=== PATIENT | female | born 1955 | race Caucasian/White ===

== ENCOUNTER 2017-07-29 18:00 | Emergency (ER) | payer MEDICAID ==
--- NOTE | 2017-07-29 18:14 | ED Physician Chart ---
ED Chief Complaint/HPI - Patient Information Allergies:: Allergies Allergy/AdvReac Type Severity Reaction Status Date / Time No Known Allergies Allergy Verified 07/29/17 18:20 Vitals:: Vital Signs - 8 hr 07/29/17 18:20 Temp 97.1 F HR 79 RR 18 BP 143/64 O2 Sat % 97 <Carly Moscoso - Last Filed: 07/29/17 22:49> - Patient Information Date Seen:: 07/29/17 Time Seen:: 18:13 Chief Complaint:: Right knee pain History of Present Illness:: 62 yo female had right knee pain with difficulty walking for one week. The pain became worse today. Patient had a fall with a trauma to the right knee 10 years ago. <Lauren Valladares - Last Filed: 07/31/17 21:25> ED Review of Systems - Review of Systems General/Constitutional: No fever Skin: No bruising Head: No headache ENT: No nasal drainage Neck: No neck pain Cardio Vascular: No chest pain Pulmonary: No SOB GI: No nausea, No vomiting Musculoskeletal: Bone or joint pain Neurological: No focal symptoms <Lauren Valladares Last Filed: 07/31/17 21:25> ED Past Medical History - Past Medical History Past Medical History: No significant medical hx Social History: Non Smoker, No Alcohol, No Drug Use Surgical History: Hysterectomy <Lauren Valladares Last Filed: 07/31/17 21:25> Family Medical History - Family Member Mother History Unknown: Yes <Carly Moscoso - Last Filed: 07/29/17 22:49> ED Physical Exam - Physical Examination General/Constitutional: Awake Head: Atraumatic Eyes: PERRL Skin: No ecchymosis ENMT: Nasal exam nl Neck: No nuchal rigidity Respiratory: No Wheeze/Rhonchi/Rales Cardio Vascular: RRR, No murmur, gallop, rubs, NL S1 S2 GI: No tenderness/rebounding/guarding Other Extremities comments:: Posterior right knee tenderness with painful ROM Neuro/Psych: No focal deficits <Lauren Valladares Last Filed: 07/31/17 21:25> ED Labs/Radiology/EKG Results - Lab Results Results: Laboratory Tests 07/29/17 07/29/17 07/29/17 18:45 18:45 18:45 WBC 7.9 RBC 4.43 Hgb 14.4 Hct 42.5 MCV 96.1 MCH 32.5 H MCHC Differential 33.8 RDW 12.2 Plt Count 238 MPV 8.6 Neutrophils % 48.7 Lymphocytes % 33.7 Monocytes % 13.5 H Eosinophils % 3.4 Basophils % 0.7 D-Dimer 1940 H Sodium 135 L Potassium 3.8 Chloride 102 Carbon Dioxide 27.6 Anion Gap 9.2 BUN 12 Creatinine 0.7 Est GFR ( Amer) > 60.0 Est GFR (Non-Af Amer) > 60.0 BUN/Creatinine Ratio 17.1 Glucose 117 H Uric Acid 4.8 Calcium 9.5 Total Bilirubin 0.3 AST 27 ALT 26 Alkaline Phosphatase 92 Total Protein 6.9 Albumin 4.2 Globulin 2.7 Albumin/Globulin Ratio 1.6 <Carly Moscoso - Last Filed: 07/29/17 22:49> - Radiology Results Results: Right knee X ray: Mild degenerative changes. No acute fracture <Lauren Valladares - Last Filed: 07/31/17 21:25> ED Assessment - Assessment General Assessment: PT HAD NEGAVE VENOUS DUPLEX NO DVT OPOPLIEAL CYSTS Critical Care Time: D - Procedures Procedures:: D-DIMEWAS ELEVATD 1000 PLAN <Carly Moscoso - Last Filed: 07/29/17 22:49> - Assessment General Assessment: Right knee pain Need to rule out Xavier's cyst, gout or DVT Assessment/Comments:: CBC, CMP, uric acid, D-dimer Right knee X ray Toradol 30mg IM RLE venous u/s Right knee u/s Dr. Moscoso assumed care at 19:00 <Lauren Valladares - Last Filed: 07/31/17 21:25> ED Septic Shock - <6hrs of presentation: Vital Signs: Vital Signs - 8 hr 07/29/17 18:20 Temp 97.1 F HR 79 RR 18 BP 143/64 O2 Sat % 97 <Carly Moscoso - Last Filed: 07/29/17 22:49> - . Is Septic Shock (SBP<90, OR Lactate>4 mmol\L) present?: No <Lauren Valladares - Last Filed: 07/31/17 21:25> ED Discharge Plan <Carly Moscoso - Last Filed: 07/29/17 22:49> <Lauren Valladares - Last Filed: 07/31/17 21:25> - Patient Disposition Admit/Discharge/Transfer: AGAINST MEDICAL ADVICE Condition at Disposition: Guarded Instructions: Form - Rejection of Medical Treatment (AMA) Course - Course Orders, Labs, Meds: PT HAD ELEVATED D DIMER TO 1900 CT ANGIO ORDERED TO R/O PULMONARY EMBOLI VENOUS DUPLEX NEG DVT <Carly Moscoso - Last Filed: 07/29/17 22:49>
[2017-07-29 18:52] LABS: % BASOPHILS 0.7 % (0.0-2.0); % EOSINOPHILS 3.4 % (0.0-5.0); % LYMPHOCYTES 33.7 % (20.0-50.0); % MONOCYTES 13.5 % (2.0-10.0); % NEUTROPHILS 48.7 % (40.0-80.0); BASOPHILE ABSOLUTE 0.1 Th/cumm (0-0.2); EOSINOPHILE ABSOLUTE 0.3 Th/cmm (0.1-0.4); HEMATOCRIT 42.5 % (41.0-60); HEMOGLOBIN 14.4 gm/dL (12-16); LYMPHOCYTE ABSOLUTE 2.7 Th/cmm (1.5-3.0); MEAN CELL VOLUME 96.1 fl (81-100); MEAN CORPUSCULAR HEMOGLOBIN 32.5 pg (27.0-31.0); MEAN CORPUSCULAR HGB CONC 33.8 pg (28.0-36.0); MEAN PLATELET VOLUME 8.6 fl; MONOCYTE ABSOLUTE 1.1 Th/cmm (0.3-1.0); NEUTROPHILE ABSOLUTE 3.7 Th/cmm (1.8-8.0); PLATELET COUNT 238 Th/cmm (150-400); RED BLOOD COUNT 4.43 Mil/cmm (3.80-5.10); RED CELL DISTRIBUTION WIDTH 12.2 % (11.5-20.0); WHITE BLOOD COUNT 7.9 Th/cmm (4.8-10.8)
[2017-07-29 19:05] LABS: ALB/GLOB RATIO 1.6 (1.0-1.8); ALBUMIN 4.2 gm/dL (3.7-5.3); ALKALINE PHOSPHATASE 92 U/L (34-104); ANION GAP 9.2 (7.0-16.0); BILIRUBIN,TOTAL 0.3 mg/dL (0.3-1.0); BUN - UREA NITROGEN 12 mg/dL (7-25); CALCIUM SERUM 9.5 mg/dL (8.6-10.3); CARBON DIOXIDE 27.6 mEq/L (21.0-31.0); CHLORIDE 102 mEq/L (98-107); CREATININE - SERUM 0.7 mg/dL (0.6-1.2); GFR AFRICAN-AMERICAN > 60.0 ml/min (>90); GFR NON AFRICAN-AMERICAN > 60.0 ml/min; GLUCOSE 117 mg/dL (70-105); POTASSIUM SERUM 3.8 mEq/L (3.5-5.1); SGOT 27 U/L (13-39); SGPT/ALT 26 U/L (7-52); SODIUM SERUM 135 mEq/L (136-145); TOTAL PROTEIN,SERUM 6.9 gm/dL (6.0-8.3); URIC ACID 4.8 mg/dL (2.3-6.6)
[2017-07-29] MEDS ORDERED: Sodium Chloride 0.9% 1,000 ML IV ONE (20:31)
[2017-07-29] MEDS ORDERED: IOHEXOL 350mgI/mL 100mL Bottle IVP ONE (21:44)
--- NOTE | 2017-07-30 09:36 | Diagnostic Imaging Report ---
Right lower extremity DVT study HISTORY: Right posterior knee pain, rule out Xavier's cyst COMPARISON: None Technique: Longitudinal and transverse sonographic images of the right lower extremity veins were obtained with doppler analysis. FINDINGS: There is normal compressibility, augmentation and phasicity of the right common femoral, superficial femoral, popliteal, and posterior tibial veins. No thrombus is visualized. No Xavier's cyst was identified during this examination. IMPRESSION: No evidence of thrombus within the right lower extremity veins. No evidence of Xavier's cyst.
--- NOTE | 2017-07-30 09:37 | Diagnostic Imaging Report ---
Right knee 3 views Indication: pain Comparison: none Findings: No evidence of an acute fracture or dislocation. Trace joint fluid is noted. Mild degenerative changes are noted. Small calcifications are seen adjacent to the patella measuring up to 4 mm. No focal soft tissue swelling. Impression: No evidence of an acute fracture. Small calcifications adjacent the patella which may have been due to old trauma. Mild degenerative changes and trace joint fluid. In the setting of trauma, if clinical symptoms persist and there is continued concern for an occult fracture, follow up exams in 5-7 days is suggested.
--- NOTE | 2017-07-30 10:07 | Diagnostic Imaging Report ---
CT Chest with IV contrast HISTORY: Elevated d-dimer, rule out PE COMPARISON: None. Technique: Axial images were obtained from the base of the neck to the upper abdomen following administration of IV contrast. Coronal reconstructions were made. Total DLP 299, CTD I9 Findings: Exam is limited as the angiography was not performed. There is suboptimal contrast opacification of the pulmonary arteries. Distal PE along the left lower lobe cannot be excluded. No evidence of mediastinal lymphadenopathy. Heart size at the upper limits of normal. Mild atherosclerosis is noted. No evidence of an aortic aneurysm. The lung apple demonstrate minimal hypoventilatory changes. No focal consolidation or effusions. There is evidence of prior cholecystectomy. The common bile duct measuring up to 1.2 cm. The osseous structures demonstrate no acute abnormalities. IMPRESSION: Limited exam for assessment of pulmonary embolus as dedicated CT PE angiogram study was not performed. There is no evidence of central pulmonary embolus. Note that small pulmonary emboli of the left lower distal subsegmental branches cannot be completely excluded. Please correlate with clinical findings. Considered follow-up dedicated CT angiography for further assessed. No focal consolidation. Mild atherosclerotic vascular disease. Evidence of prior cholecystectomy with prominent common bile duct measuring up to 1.2 cm.
== END 2017-07-30 01:05 | disposition left against medical advice (07) ==
LOC: ER 18:00
DX: M25.561 Pain in right knee (principal); Z90.710 Acquired absence of both cervix and uterus
CPT/HCPCS: 99285; 96372; 93971; 73564; 71260; 36415; 85379; 85025; 80053; 84550; Q9967; J1885; 73562-TC-RT; J7030